=== PATIENT | male | born 1950 | race Hispanic/Latino ===

== ENCOUNTER → 2017-09-10 | Day surgery (SDC) | payer MEDICARE ==
[2017-08-27 09:52] VITALS: BMI 31.6
[~2017-09-10] MED LIST: Bacitracin Ointment 30 GM TUBE ONE; Bupivacaine 0.25% Inj(30mL) ONE; Lidocaine 2% MPF (5 ml) Inj ONE; Midazolam 2 MG/2 ML VIAL ONE; Oxycodone/Acetaminophen 5/325 mg Tab PO PRN; Propofol 10 mg/ml Inj (20 ML) ONE; ceFAZolin 1 gm in NS 0 GM/0 ML BAG IVPB ONE
--- NOTE | 2017-09-10 12:39 | PCM.SURG1 ---
Surgeon's Initial Post Op Note - Surgeon's Notes Surgeon: Dr. Ry Owens DPM [employer] Bar[employer] Reconditioner: Dr. Haile Wright DPM PGY-1 Type of Anesthesia: IV Sedation, Local Anesthesia Administered By: Dr. Luis HAMILTON Pre-Operative Diagnosis: Bilateral Ingrown nail Operative Findings: See dictation. M: none. I: pre-op: 10 cc of 1:1 2% lidocaine plain:0.25% marcaine plain Post-Operative Diagnosis: Same Operation Performed: Bilateral complete hallux nail avulsion Specimen/Specimens Removed: none Estimated Blood Loss: EBL {In ML}: 1 Blood Products Given: N/A Drains Used: No Drains Post-Op Condition: Good Date of Surgery/Procedure: 09/10/17 Time of Surgery/Procedure: 12:40
[2017-09-10 14:08] VITALS: BP 113/65; PULSE 82; RESP 16; TEMP 97.9; O2SAT 96
--- NOTE | 2017-09-13 07:25 | OP ---
PROCEDURE DATE: 09/10/2017 SURGEON: Ry Owens DPM [employer] INSTRUCTOR: Haile Wright DPM, PGY-1 ANESTHESIOLOGIST: Dr. Smith. TYPE OF ANESTHESIA: IV sedation with local. PREOPERATIVE DIAGNOSIS: Bilateral hallux ingrowing nail. POSTOPERATIVE DIAGNOSIS: Bilateral hallux ingrowing nail. PROCEDURE: Bilateral hallux complete nail avulsion with chemical matricectomy. INDICATION: The patient is a 67-year-old male with the above diagnosis. The patient has exhausted all conservative treatments at this time and now requests surgical intervention. The patient signed the consent after careful explanation of risks, benefits, complications, and alternatives for the surgical procedure. N.p.o. status was confirmed prior to taking the patient to the operating room. No guarantees were given nor implied. PREPARATION: The patient was brought into the operating room and placed on the operating room table in supine position. The timeout was performed for identification of the correct patient and the procedure. The patient received a total of 10 mL of 1:1 mixture of 2% lidocaine plain and 0.25% Marcaine plain in local H-block type fashion to the right and left hallux. Once anesthesia was achieved, the right and left feet were then prepped and draped in normal sterile manner and the procedure began on one hallux at a time. PROCEDURES: Bilateral hallux complete nail avulsion with chemical matricectomy. DESCRIPTION OF PROCEDURE: First the attention was directed to the right hallux medial and lateral borders in which with the use of freer both sides of the borders were freed. The proximal nailfold was also pushed down proximally from the nail plate. At this time, using a freer, the nail plate was undermined and was freed from the nail bed. Using a hemostat, nail plate was removed from the nail bed and passed off the operative field. Phenol was applied on the proximal margin of the nail bed at the matrix. Matrix was phenolized with 30 seconds of application and 30 seconds off, without, all three times. The hallux was then dressed with Bacitracin, 4x4, Kerlix, and Coban. The same steps were repeated on the left hallux. POSTOPERATIVE CONDITION: The patient tolerated the anesthesia and procedure well and was escorted to the recovery room with vital signs stable and neurovascular status intact to bilateral feet. The patient is to remain full weightbearing to the bilateral feet with the surgical shoe. The patient will be seen and followed by Dr. Owens as an outpatient in his office. Haile Wright DPM Ry Owens DPM
== END | disposition home or self-care (01) ==
LOC: C.SDS 10:33
PROVIDERS: ATTEND Podiatrist Foot & Ankle Surgery
DX: L60.0 Ingrowing nail (principal); M20.5X2 Other deformities of toe(s) (acquired), left foot; M20.5X1 Other deformities of toe(s) (acquired), right foot; I25.10 Atherosclerotic heart disease of native coronary artery without angina pectoris; Z95.5 Presence of coronary angioplasty implant and graft; I11.0 Hypertensive heart disease with heart failure; I50.9 Heart failure, unspecified; Z86.73 Personal history of transient ischemic attack (TIA), and cerebral infarction without residual deficits; E05.90 Thyrotoxicosis, unspecified without thyrotoxic crisis or storm; E11.9 Type 2 diabetes mellitus without complications; Z79.84 Long term (current) use of oral hypoglycemic drugs; Z79.02 Long term (current) use of antithrombotics/antiplatelets; Z95.810 Presence of automatic (implantable) cardiac defibrillator; I44.7 Left bundle-branch block, unspecified; I44.0 Atrioventricular block, first degree; K76.0 Fatty (change of) liver, not elsewhere classified
CPT/HCPCS: 11730; 82948; 88304; J2250; J2704; J3010